=== PATIENT | female | born 1985 | race Caucasian/White ===

== ENCOUNTER 2020-02-06 18:41 | Observation (INO) | payer BC ==
[~2020-02-06] VITALS: Ht 162.6 cm; Wt 68.2 kg
[2020-02-06] MEDS ORDERED: VALIUM5 MG (18:46)
[2020-02-06] MEDS ORDERED: DEPAKOTE125 MG PO (18:47)
[2020-02-06] MEDS ORDERED: LEXAPRO10 MG PO (18:47)
[2020-02-06] MEDS ORDERED: ZOVIRAX800 MG PO (18:48)
[2020-02-06] MEDS ORDERED: ATARAX 25 MG TA25 MG PO (18:48)
[2020-02-06 19:01] LABS: BASOPHILS 0.3 % (0-2); EOSINOPHILS 0.3 % (0-7); HEMATOCRIT 43.3 % (36.0-48.0); HEMOGLOBIN 14.5 g/dL (12-16); IMMATURE GRANULOCYTES 0.2 % (0-5); LYMPHOCYTES 26.2 % (15-50); MCH 31.9 pg (26.0-34.0); MCHC 33.5 g/dL (31.0-37.0); MCV 95.4 fL (80.0-100.0); MEAN PLATELET VOLUME 10.3 fL (7.4-10.4); MONOCYTES 6.8 % (2-11); NEUTROPHILS 66.2 % (40-80); PLATELET COUNT 232 10x3/uL (130-400); RBC 4.54 10x6/uL (4.00-5.40); WBC 8.9 10x3/uL (4.8-10.8)
--- NOTE | 2020-02-06 19:07 | NUR ---
PT IN T2- SL IN PLACE TO LEFT WRIST WITH 20G. MONITOR IN PLACE. PT STATES HAS NEVER HAD INPATIENT PSYCH BEFORE. BEDSIDE POTTY CHAIR IN TO ATTEMPT TO GET URINE SAMPLE.
[2020-02-06 19:10] LABS: CALC OSMOLALITY 279 mosm/kg (275-300); CALCIUM 9.1 mg/dL (8.5-10.1); CHLORIDE - SERUM 106 mmol/L (98-107); CREATININE - SERUM 0.9 mg/dL (0.6-1.3); GLUCOSE 89 mg/dL (74-106); POTASSIUM - SERUM 3.7 mmol/L (3.5-5.1); SODIUM 142 mmol/L (136-145); UREA NITROGEN 6 mg/dL (7-18); eGFR NON AFRICAN AMERICAN 76 mL/min (90-120)
--- NOTE | 2020-02-06 19:14 | NUR ---
POISON CONTROL NOTIFIED OF PT, TALKED TO CHRISTIANA SHE STATES ONLY NEED TO MONITOR PT FOR ABOUT 4-6 HOURS. CHARCOAL NOT RECOMENDED FOR THIS AMOUNT. REGULAR DOSE OF VISTARIL IS 50 TO 100 EVERY 4-6 HOURS HAS NOT TAKEN MORE THAN A DAILY DOSE.
[2020-02-06 19:17] VITALS: BP 124/74
[2020-02-06 19:18] LABS: ALBUMIN 4.2 g/dL (3.4-5.0); ALKALINE PHOSPHATASE 49 U/L (30-120); ALT (SGPT) 20 U/L (10-68); BILIRUBIN - TOTAL 0.42 mg/dL (0.2-1.3); MAGNESIUM - SERUM 1.9 mg/dL (1.8-2.4); PROTEIN - SERUM 7.6 g/dL (6.4-8.2)
[2020-02-06 19:23] LABS: HCG URINE NEGATIVE (NEGATIVE)
[2020-02-06 19:28] LABS: BILIRUBIN NEGATIVE (NEGATIVE); GLUCOSE NEGATIVE (NEGATIVE); KETONE NEGATIVE (NEGATIVE); NITRITE NEGATIVE (NEGATIVE); SPECIFIC GRAVITY 1.005 (1.005-1.020); UROBILINOGEN NORMAL (NORMAL)
[2020-02-06 19:29] LABS: RED CELLS - URINE OCC /hpf (0-5); WHITE CELLS - URINE RARE /hpf (NEGATIVE)
[2020-02-06 19:30] LABS: UDS - AMPHET NEGATIVE QUAL (NEGATIVE); UDS - BARB NEGATIVE QUAL (NEGATIVE); UDS - BENZO NEGATIVE QUAL (NEGATIVE); UDS - COCAINE NEGATIVE QUAL (NEGATIVE); UDS - OPIATE NEGATIVE QUAL (NEGATIVE); UDS - PCP NEGATIVE QUAL (NEGATIVE); UDS - THC POSITIVE QUAL (NEGATIVE)
--- NOTE | 2020-02-06 20:32 | NUR ---
RICKY FROM [facility] IN ROOM DOING ASSESSMENT. PT STABLE.
--- NOTE | 2020-02-06 20:37 | NUR ---
PATIENT IS IN ER T2, FOR OVERDOSING, SHE IS DEPRESSED DUE TO MARITAL TROUBLE, PATIENT DENIES SUICIDE AT THIS TIME AND SAYS SHE WANTS TO GO HOME AND GO TO SLEEP, HOWEVER DUE TO HER GESTURE AND HISTORY SHE WILL BE PLACED ON 1:1. SHE HAS VERY POOR EYE CONTACT. 1-800 NUMBER SUICIDE HOTLINE AND WEBSITE GIVEN TO HER FOR FUTURE REFERENCE.
--- NOTE | 2020-02-06 21:31 | NUR ---
MEDS COUNTED AND PLACED IN PYXIS. NO BOTTLE OF VALIUM FOUND.
--- NOTE | 2020-02-06 22:00 | NUR ---
RECEIVED PT TO FLOOR FROM ER VIA WHEELCHAIR. PT IS FRIENDLY AND SOFTSPOKEN. REVIEWED HOME MEDS AND HISTORY. COMPLETE ASSESSMENT PER FLOW-SHEET. NO NEEDS AT THIS TIME. WILL CONTINUE TO MONITOR.
[2020-02-06] MEDS ORDERED: ARISTOCORT 0.5%15 GM TOPICAL (22:16)
[2020-02-07] VITALS: BP 126/90
[2020-02-07 00:36] VITALS: BP 126/90; BMI 25.8
[2020-02-07 04:00] VITALS: BP 111/66
--- NOTE | 2020-02-07 07:56 | NUR ---
PT LYING IN BED ASLEEP, JUMPS WHEN AWAKENED, STATED NO NEEDS AT THIS TIME JUST WANTED TO SLEEP, IV IN LEFT FA SL, CDI AND PATENT. SITTER OUTSIDE OF ROOM, CONTINUE WITH PLAN OF CARE
[2020-02-07 08:02] VITALS: BP 120/71
[2020-02-07 09:54] VITALS: Ht 162.6 cm; Wt 68.2 kg
--- NOTE | 2020-02-07 10:34 | NUR ---
PT IN ROOM KICKING BED STATING SHE WILL FIND A WAY TO HARM HERSELF IN HER ROOM BECAUSE SHE NEEDS HER MEDICATIONS THAT TELLER HEAD TOLD HER SHE COULD HAVE, NO NOTES OR ORDERS IN UNABLE TO ADMINISTER MEDS PT WANTS, HAVE ALREADY TALKED TO SNF, CONTINUE WITH PLAN OF CARE
[2020-02-07 11:45] VITALS: BP 135/92
[2020-02-07 16:49] VITALS: BP 100/63
--- NOTE | 2020-02-07 18:03 | NUR ---
PT WAS SEEN BY DR JULIEN AND BECAME VERY UPSET, PT DOES NOT WANT TO GO TO [facility], GAVE PT PRN MEDICATION, PENDING DC ORDERS FROM FOR TRANSFER TO [facility].
--- NOTE | 2020-02-07 18:34 | NUR ---
I have reviewed this patient and I concur with the Shift Assessment completed by the Licensed Practical Nurse today this shift.
--- NOTE | 2020-02-07 18:49 | NUR ---
RECEIVED VERBAL ORDERS FROM DR MESSER TO DC PT TO [facility], CALLED [facility] TO SEE WHAT PROCESS IS AND WAS INFORMED THEY ARE IN REPORT AND TOOK MY NAME AND NUMBER AND WILL CALL BACK. NO S/SX OF DISTRESS, CONTINUE WITH PLAN OF CARE
--- NOTE | 2020-02-07 18:54 | NUR ---
RECEIVED CALL BACK FROM ARNALDO AT [facility], STATED PT WAS NOT ADMITTED TO [facility] AND TRANSFERRED TO [facility] BUT SHOWED UP IN THEIR ER AND TRANSFERRED TO US FOR MEDICAL CLEARANCE DUE TO OD, ARNALDO STATED SHE JUST ARRIVED AT WORK AND KNOWS THERES ONE IN [facility] ER AWAITING PLACEMENT AND SHE WOULD HAVE TO WALK THE FLOOR AND CHECK OCCUPANCY AND CALL BACK. WILL CONTINUE WITH PLAN OF CARE
--- NOTE | 2020-02-07 20:00 | NUR ---
SUPINE IN BED, EYE OPENING UPON VERBAL/GENTLE TACTILE STIMULATING. ORIENTED X 4, BUT LETHARGIC. SITTER PRESENT. WILL CONTINUE TO MONITOR CLOSELY.
[2020-02-08 00:03] VITALS: BP 109/76
[2020-02-08 04:53] LABS: BASOPHILS 0.7 % (0-2); EOSINOPHILS 2.7 % (0-7); HEMOGLOBIN 14.9 g/dL (12-16); IMMATURE GRANULOCYTES 0.1 % (0-5); LYMPHOCYTES 34.8 % (15-50); MCH 31.8 pg (26.0-34.0); MCHC 33.1 g/dL (31.0-37.0); MCV 95.9 fL (80.0-100.0); MEAN PLATELET VOLUME 10.6 fL (7.4-10.4); MONOCYTES 8.6 % (2-11); NEUTROPHILS 53.1 % (40-80); PLATELET COUNT 240 10x3/uL (130-400); RBC 4.69 10x6/uL (4.00-5.40); RDW 12.3 % (11.5-14.5); WBC 7.4 10x3/uL (4.8-10.8)
[2020-02-08 05:07] LABS: CALCIUM 8.7 mg/dL (8.5-10.1); CARBON DIOXIDE 28.3 mmol/L (21.0-32.0); CREATININE - SERUM 1.1 mg/dL (0.6-1.3); POTASSIUM - SERUM 3.3 mmol/L (3.5-5.1)
[2020-02-08 05:34] VITALS: BP 129/78
--- NOTE | 2020-02-08 07:15 | NUR ---
REC'D IN BED AWAKE AND ALERT. RESP EVEN AND UNLABORED WITH NO DISTRESS NOTED. CAN EXPRESS NEEDS AND WANTS WITH NONE NOTED OR VOICED. ASSESSMENT COMPLETED. C/L IN REACH AT BEDSIDE.
[2020-02-08 09:07] VITALS: BP 113/72
--- NOTE | 2020-02-08 09:10 | MORECARE ---
CASE MANAGEMENT DISCHARGE SUMMARY PATIENT: RICARDO QUINN UNIT: [id number] ADM DATE: 02/06/20 AGE: 34 : 86 SEX: F ROOM/BED: D.2210 AUTHOR: JON HALL PHYSICIAN: REFERRING PHYSICIAN: JAE SONI MD DATE OF SERVICE: 02/08/20 Discharge Plan Patient Name: RICARDO QUINN [facility] [facility] 1985 Planned Disposition: Psych facility Anticipated Discharge Date: Discharge Date: Expected LOS: Initial Reviewer: [email or web address] Initial Review Date: 02/06/2020 Generated: 02/08/20 10:09 am Comments DCP- Discharge Planning Updated by [email or web address]: Yamilet Capps on 02/08/20 8:[address] PATIENT HAD ORDERS YESTERDAY TO GO TO INPATIENT PSYCH REFERRAL SENT TO [facility] WITH [facility] External Providers External Provider: [facility] (Inpt Adult Psych) Next Contact Date: Service Request Date: Service Type: Resolution: Reviewer: Comments: Patient Name: RICARDO QUINN Page [id number] at 0910 All edits/amendments must be made on the electronic document DICTATION DATE: 02/08/20908 ADDICTION SPECIALIST: CARLEEN 02/08/20908 RPT#: [id number] DC DATE: STATUS: ADM IN [place] [address] [place] [address] END OF REPORT
--- NOTE | 2020-02-08 09:54 | NUR ---
PT CONTINUES TO EXPRESS SUICIDAL THOUGHTS. SITTER AT BEDSIDE FOR SUICIDE RISK.
--- NOTE | 2020-02-08 10:34 | MORECARE ---
CASE MANAGEMENT DISCHARGE SUMMARY PATIENT: RICARDO QUINN UNIT: [id number] ADM DATE: 02/06/20 AGE: 34 : 86 SEX: F ROOM/BED: D.2210 AUTHOR: JON HALL PHYSICIAN: REFERRING PHYSICIAN: JAE SONI MD DATE OF SERVICE: 02/08/20 Discharge Plan Patient Name: RICARDO QUINN [facility] [facility] 1985 Planned Disposition: Psych facility Anticipated Discharge Date: Discharge Date: Expected LOS: Initial Reviewer: [email or web address] Initial Review Date: 02/06/2020 Generated: 02/08/20 11:34 am Comments DCP- Discharge Planning Updated by [email or web address]: Yamilet Capps on 02/08/20 9:[address] BECKI WITH [facility] CALLED AND STATED THAT THEY ARE GOING TO ACCEPT HER, NURSE WILL CALL REPORT AND THE PATIENT WILL BE TRANSFERED VIA EMS DCP- Discharge Planning Updated by [email or web address]: Yamilet Capps on 02/08/20 8:[address] PATIENT HAD ORDERS YESTERDAY TO GO TO INPATIENT PSYCH REFERRAL SENT TO [facility] SPOKE WITH BECKI Last DP export: 02/08/20 8:10 am Patient Name: RICARDO QUINN Page [phone] at 1034 All edits/amendments must be made on the electronic document DICTATION DATE: 02/08/20 1034 MANAGER TECHNOLOGY: CARLEEN 02/08/20 1034 RPT#: [id number] DC DATE: STATUS: ADM IN [facility] [address] [place] [address] END OF REPORT
--- NOTE | 2020-02-08 11:32 | CN ---
PATIENT NAME:RICARDO QUINN MEDICAL RECORD: [id number] : 87 LOCATION:[facility] ADMIT DATE: 02/06/20 ACCOUNT: [id number] CONSULTING PHYSICIAN: HERBERTH HOFFMAN MD REFERRING PHYSICIAN: JAE SONI MD DATE OF CONSULTATION: 02/07/2020 Psychiatric Consultation IDENTIFYING DATA: The patient is 34 years old and she is admitted to the hospital secondary to an intentional overdose. CHIEF COMPLAINT: None. HISTORY OF PRESENT ILLNESS: The patient took 300 mg of Vistaril, 5 mg of Valium and then made a superficial cut to her wrist. She then presented to the Emergency Room at [facility]. They contacted us so that she could be medically cleared prior to going inpatient there. The patient endorses numerous neurovegetative depressive symptoms, says she is really not suicidal and just wants to go home and see her children. She cannot explain the overdose except to say that she cannot explain why things have changed since yesterday. ASSESSMENT: 1. Major depression. 2. Status post overdose. 3. Cluster B personality disorder. PLAN: The patient will be transitioned to inpatient psychiatric care as soon as it is reasonably practical to do so. Given the circumstances, I think she needs to be evaluated on an inpatient basis to ensure that she is safe. TRANSINT:[id number] Voice Confirmation ID: [id number] DOCUMENT ID: [id number] HERBERTH HOFFMAN MD at 1132 CC: [id number] DICTATION DATE: 02/07/20 170 DROP CREW LABORER: 02/07/202110 ADM IN [place] [id number] [place] [id number]
--- NOTE | 2020-02-08 12:53 | NUR ---
REPORT CALLED AND GIVEN TO MICHA BROWN AT [facility] AT THIS TIME. PT IS TO TRANSPORTED VIA EMS. IV DC AT THIS TIME. SITTER REMOVER OUTSIDE OF DOOR. C/L IN REACH AT BESIDE.
--- NOTE | 2020-02-08 14:23 | NUR ---
AMBULANCE HERE TO TRANSPORT PT TO [facility]. STABLE CONDITION UPON DEPARTURE.
--- NOTE | 2020-02-09 09:25 | MORECARE ---
CASE MANAGEMENT DISCHARGE SUMMARY PATIENT: RICARDO QUINN UNIT: [id number] ADM DATE: 02/06/20 AGE: 34 : 86 SEX: F ROOM/BED: D.2210 AUTHOR: JON HALL PHYSICIAN: REFERRING PHYSICIAN: JAE SONI MD DATE OF SERVICE: 02/09/20 Discharge Plan Patient Name: RICARDO QUINN [facility] [facility] 1985 Planned Disposition: Psych facility Anticipated Discharge Date: Discharge Date: 02/08/2020 Expected LOS: Initial Reviewer: [email or web address] Initial Review Date: 02/06/2020 Generated: 02/09/20 10:25 am Comments DCP- Discharge Planning Updated by [email or web address]: Yamilet Capps on 02/08/20 9:[address] BECKI WITH [facility] CALLED AND STATED THAT THEY ARE GOING TO ACCEPT HER, NURSE WILL CALL REPORT AND THE PATIENT WILL BE TRANSFERED VIA EMS DCP- Discharge Planning Updated by [email or web address]: Yamilet Capps on 02/08/20 8:[address] PATIENT HAD ORDERS YESTERDAY TO GO TO INPATIENT PSYCH REFERRAL SENT TO [facility] SPOKE WITH [facility]ECKI Last DP export: 02/08/20 9:34 am Patient Name: RICARDO QUINN Page [phone] at 0925 All edits/amendments must be made on the electronic document DICTATION DATE: 02/09/20924 MERCHANT PATROLLER: CARLEEN 02/09/20924 RPT#: [id number] DC DATE:02/08/20 STATUS: DIS IN [facility] [address] [place] [address] END OF REPORT
== END 2020-02-08 14:25 | disposition short-term general hospital (02) ==
LOC: D.ER 18:41 → D.MS 19:50 → OBSVTIME 22:00 → D.MS 02-08 14:25
PROVIDERS: Family Medicine; ADMIT Internal Medicine Nephrology; ATTEND Internal Medicine Nephrology
DX: T42.4X2A Poisoning by benzodiazepines, intentional self-harm, initial encounter (principal); T43.592A Poisoning by other antipsychotics and neuroleptics, intentional self-harm, initial encounter; N17.9 Acute kidney failure, unspecified; F32.9 Major depressive disorder, single episode, unspecified; L30.9 Dermatitis, unspecified; F12.10 Cannabis abuse, uncomplicated